=== PATIENT | male | born 1950 | race American Indian/Alaskan Native ===

== ENCOUNTER 2016-10-02 19:30 | Emergency (ER) | payer MEDICARE ==
[2016-10-02 19:30] VITALS: BMI 24.1
[2016-10-02 19:39] VITALS: BP 143/82; PULSE 76; RESP 20; TEMP 98.2; O2SAT 99
--- NOTE | 2016-10-02 19:50 | C.PDOC ---
History Of Present Illness 65-year-old male, with history of diabetes on insulin, hypertension, hyperlipidemia, PAD bilateral LE amputation , mild chronic kidney disease presents to the emergency department for with complains of chronic B/L legs pain x4 days (front right thigh radiating to right hip). 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 PT currently not on chronic pain medication or anticoagulants. Pt denies injury. Pt not associated with movement, no swelling. Pt admits, similar pain in past, denies any new changes to pain quality or location. Pt denies fever, chills, cough, SOB, dyspnea, palpitation, denies swelling, skin changes to B/L LEs. AT present time, appears comfortable, not in any apparent distress. Time Seen by Provider: 10/02/16 19:48 Chief Complaint (Nursing): Pain, Chronic History Per: Patient History/Exam Limitations: no limitations Onset/Duration Of Symptoms: Days (4) Current Symptoms Are (Timing): Still Present Past Medical History Reviewed: Historical Data, Nursing Documentation, Vital Signs Vital Signs: Last Vital Signs Temp 98.2 F 10/02/16 19:37 Pulse 76 10/02/16 19:37 Resp 20 10/02/16 20:54 BP 143/82 10/02/16 19:37 Pulse Ox 99 10/02/16 20:41 - Medical History PMH: CHF, Diabetes, HTN, Hypercholesterolemia, Peripheral Edema (left ankle) - [facility] Procedures AMPUTAT THROUGH MALLEOLI (11/23/14) ANGIOPLASTY OF OTHER NON-CORONARY VESSEL(S) (02/15/14) BELOW KNEE AMPUTAT NEC (11/23/14) CONTINUOUS INVASIVE MECHANICAL VENTILATION <96 CONSEC HRS (10/30/13) CONTRAST ARTERIOGRAM-LEG (02/15/14) INSEJ [id number] PERIPHERAL NON-CORONARY VES STENT(S) (10/30/13) INSERTION OF TWO VASCULAR STENTS (10/30/13) PACKED CELL TRANSFUSION (11/23/14) PROCEDURE ON SINGLE VESSEL (02/15/14) PROCEDURE ON TWO VESSELS (10/30/13) VASC SHUNT & BYPASS NEC (10/30/13) VENOUS CATHETERIZATION NEC (10/30/13) Family History: States: No Known Family Hx - Social History Hx Tobacco Use: Yes Hx Alcohol Use: Yes Hx Substance Use: No - Immunization History Hx Tetanus Toxoid Vaccination: No Hx Influenza Vaccination: No Hx Pneumococcal Vaccination: No Review Of Systems Except As Marked, All Systems Reviewed And Found Negative. Constitutional: Negative for: Fever, Chills Cardiovascular: Negative for: Palpitations Respiratory: Negative for: Cough, Shortness of Breath Musculoskeletal: Positive for: Leg Pain (Bilateral leg pain ) Physical Exam - Physical Exam Appears: Well, Non-toxic, No Acute Distress Skin: Normal Color, Warm, No Rash, No Ecchymosis Eye(s): bilateral: Normal Inspection Nose: Normal, No Discharge Oral Mucosa: Moist Throat: Normal Neck: Normal, Normal ROM, Supple Cardiovascular: Rhythm Regular Respiratory: Normal Breath Sounds, No Stridor, No Wheezing Gastrointestinal/Abdominal: Normal Exam, Soft, No Tenderness Back: Normal Inspection, No CVA Tenderness Extremity: Other (B/L BKA. Appears well healed, no cellulitis, no ecchymoses. Exam of proximal leg- normal exam.) Neurological/Psych: Oriented x3, Normal Speech ED Course And Treatment O2 Sat by Pulse Oximetry: 99 Pulse Ox Interpretation: Normal Progress Note: Records from previous visit to ED review, pt was seen here in ED due to chronic B/L legs pain multiple times and received Rx: Percocet. On re- eavluation, pt is afebrile, hemodynamicaly stable. Non-toxic. Lungs: CTA B/L, BS equal B/L. CVS: (+)S1S2, reg. B/L LEs: no evidence of cellulitis or any other acute findings. Pt admits, pain is chronic, denies any new changes in pain, not in location or quality. Pt was given analgesics in ED and ref. to F/ u with PMD and PM in 1-2 dyas for re-eval and further pain control. Return to ED if any worsening or new changes. 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 Medical Decision Making Medical Decision Making: PLAN: * Morphine IM Disposition Counseled Patient/Family Regarding: Diagnosis, Need For Followup - Disposition Referrals: Tahir Carl MD [Staff Provider] - [facility] [Provider Group] [facility] [Provider Group] Disposition: HOME/ ROUTINE Disposition Time: 20:30 Condition: STABLE Additional Instructions: Follow up with PMD and PM in 1-2 days for re-evaluation and further pain control. return to ED if any new changes. Instructions: Chronic Pain (ED), Above the Knee Amputation (DC) - Clinical Impression Clinical Impression: Chronic pain of lower extremity, Hx of BKA - PA / DESIGN ARCHITECT / Resident Statement MD/DO has reviewed & agrees with the documentation as recorded. - Scribe Statement The provider has reviewed the documentation as recorded by the Scribe Alejandra Tadeo All medical record entries made by the Scribe were at my direction and personally dictated by me. I have reviewed the chart and agree that the record accurately reflects my personal performance of the history, physical exam, medical decision making, and the department course for this patient. I have also personally directed, reviewed, and agree with the discharge instructions and disposition.
[2016-10-02] MEDS ORDERED: Morphine 4 MG/ML VIAL ONE (20:01)
== END 2016-10-02 20:54 | disposition home or self-care (01) ==
LOC: C.ER 19:30
DX: M79.605 Pain in left leg (principal); M79.604 Pain in right leg; G89.29 Other chronic pain; Z89.512 Acquired absence of left leg below knee; Z89.511 Acquired absence of right leg below knee
CPT/HCPCS: 82948; 96372; 99284; J2270

== ENCOUNTER 2016-10-03 21:12 | Emergency (ER) | payer MEDICARE ==
[2016-10-03 21:12] VITALS: BMI 24.1
[2016-10-03 21:25] VITALS: BP 153/71; PULSE 73
--- NOTE | 2016-10-03 21:43 | C.PDOC ---
History Of Present Illness Patient presents to the ED seeking refill of narcotics for chronic right leg pain. Patient has history of right AKA and left BKA. Patient denies fever, nausea, vomiting. Time Seen by Provider: 10/03/16 21:29 Chief Complaint (Nursing): Lower Extremity Problem/Injury History Per: Patient History/Exam Limitations: no limitations Onset/Duration Of Symptoms: Unknown Past Medical History Reviewed: Historical Data, Nursing Documentation, Vital Signs Vital Signs: Last Vital Signs Temp Pulse 73 10/03/16 21:17 Resp 15 10/03/16 22:31 BP 153/71 H 10/03/16 21:17 Pulse Ox 99 10/04/16 00:22 - Medical History PMH: CHF, Diabetes, HTN, Hypercholesterolemia, Peripheral Edema (left ankle), Chronic Kidney Disease - [facility] Procedures AMPUTAT THROUGH MALLEOLI (11/23/14) ANGIOPLASTY OF OTHER NON-CORONARY VESSEL(S) (02/15/14) BELOW KNEE AMPUTAT NEC (11/23/14) CONTINUOUS INVASIVE MECHANICAL VENTILATION <96 CONSEC HRS (10/30/13) CONTRAST ARTERIOGRAM-LEG (02/15/14) INSEJ [id number] PERIPHERAL NON-CORONARY VES STENT(S) (10/30/13) INSERTION OF TWO VASCULAR STENTS (10/30/13) PACKED CELL TRANSFUSION (11/23/14) PROCEDURE ON SINGLE VESSEL (02/15/14) PROCEDURE ON TWO VESSELS (10/30/13) VASC SHUNT & BYPASS NEC (10/30/13) VENOUS CATHETERIZATION NEC (10/30/13) Family History: States: Unknown Family Hx - Social History Hx Tobacco Use: Yes Hx Alcohol Use: Yes Hx Substance Use: No - Immunization History Hx Tetanus Toxoid Vaccination: No Hx Influenza Vaccination: No Hx Pneumococcal Vaccination: No Review Of Systems Constitutional: Negative for: Fever, Chills Gastrointestinal: Negative for: Nausea, Vomiting Musculoskeletal: Positive for: Leg Pain (right) Physical Exam - Physical Exam Appears: No Acute Distress, Combative (confrontational and argumentative ), Agitated Skin: Warm, Dry Eye(s): bilateral: Abnormal Pupil (pinpoint pupils) Extremity: Normal ROM, No Tenderness Neurological/Psych: Oriented x3 ED Course And Treatment O2 Sat by Pulse Oximetry: 99 Medical Decision Making Medical Decision Making: chronic R leg pain, ran out of Tramadol- Dr. Carl called in a new Rx but pt did not belt picker @ pharmacy today. Will belt picker tomorrow One dose of Tramadol tonight should get pt through to tomorrow. Extensive narcotics regimen on [place] [employer] Disposition Doctor Will See Patient In The: Office Counseled Patient/Family Regarding: Studies Performed, Diagnosis - Disposition Referrals: Tahir Carl MD [Staff Provider] - Disposition: HOME/ ROUTINE Disposition Time: 21:42 Condition: GOOD Additional Instructions: At your earliest convenience please belt picker the narcotic pain relievers as prescribed by Dr. Carl today- The ED may NOT be used for renewing chronic narcotic pain relievers. Instructions: Chronic Pain (ED) - Clinical Impression Clinical Impression: Chronic pain of lower extremity - Scribe Statement The provider has reviewed the documentation as recorded by the Scribe Janis Madison All medical record entries made by the Scribe were at my direction and personally dictated by me. I have reviewed the chart and agree that the record accurately reflects my personal performance of the history, physical exam, medical decision making, and the department course for this patient. I have also personally directed, reviewed, and agree with the discharge instructions and disposition.
[2016-10-03 22:34] VITALS: RESP 15
[2016-10-04 00:17] VITALS: O2SAT 99
== END 2016-10-03 22:31 | disposition home or self-care (01) ==
LOC: C.ER 21:12
DX: G89.29 Other chronic pain (principal); M79.661 Pain in right lower leg

== ENCOUNTER 2017-04-14 16:20 | Emergency (ER) | payer MEDICARE ==
[2017-04-14 16:20] VITALS: BMI 24.1
--- NOTE | 2017-04-14 16:44 | C.PDOC ---
History Of Present Illness 66 year old male, with history of DM, left BKA, right AKA, presents to the ED via ambulance for evaluation of right leg pain and lower back which began after he fell out of his wheelchair a couple days ago. Patient states he has been taking Tramadol at home without significant relief. Patient denies head injury/ LOC, nausea, vomiting, urinary/bowel incontinence, extremity numbness/weakness. Chief Complaint (Nursing): Lower Extremity Problem/Injury History Per: Patient, EMS History/Exam Limitations: no limitations Onset/Duration Of Symptoms: Hrs Current Symptoms Are (Timing): Still Present Additional History Per: Patient Past Medical History Reviewed: Historical Data, Nursing Documentation, Vital Signs Vital Signs: Last Vital Signs Temp 97.9 F 04/14/17 19:15 Pulse 86 04/14/17 19:15 Resp 18 04/14/17 19:15 BP 150/72 04/14/17 19:15 Pulse Ox 98 04/14/17 19:46 - Medical History PMH: CHF, Diabetes, HTN, Hypercholesterolemia, Peripheral Edema (left ankle), Chronic Kidney Disease Surgical History: No Surg Hx Denies: Pacemaker - [facility] Procedures AMPUTAT THROUGH MALLEOLI (11/23/14) ANGIOPLASTY OF OTHER NON-CORONARY VESSEL(S) (02/15/14) BELOW KNEE AMPUTAT NEC (11/23/14) CONTINUOUS INVASIVE MECHANICAL VENTILATION <96 CONSEC HRS (10/30/13) CONTRAST ARTERIOGRAM-LEG (02/15/14) INSEJ [id number] PERIPHERAL NON-CORONARY VES STENT(S) (10/30/13) INSERTION OF TWO VASCULAR STENTS (10/30/13) PACKED CELL TRANSFUSION (11/23/14) PROCEDURE ON SINGLE VESSEL (02/15/14) PROCEDURE ON TWO VESSELS (10/30/13) VASC SHUNT & BYPASS NEC (10/30/13) VENOUS CATHETERIZATION NEC (10/30/13) Family History: States: Unknown Family Hx - Social History Hx Tobacco Use: Yes Hx Alcohol Use: No Hx Substance Use: No - Immunization History Hx Tetanus Toxoid Vaccination: Yes Hx Influenza Vaccination: Yes Hx Pneumococcal Vaccination: Yes Review Of Systems Gastrointestinal: Negative for: Nausea, Vomiting Genitourinary: Negative for: Incontinence Musculoskeletal: Positive for: Back Pain (right, lower ), Leg Pain (right) Neurological: Negative for: Weakness, Numbness, Other (head injury/LOC ) Physical Exam - Physical Exam Appears: Non-toxic, No Acute Distress Skin: Normal Color, Warm, Dry, No Other (erythema ) Head: Atraumatic, Normacephalic Eye(s): bilateral: Normal Inspection Oral Mucosa: Moist Neck: Supple Chest: Symmetrical, No Deformity Cardiovascular: Rhythm Regular, No Murmur Respiratory: Normal Breath Sounds Back: Normal Inspection, No Vertebral Tenderness, No Paraspinal Tenderness Extremity: Normal ROM (as per baseline status ), No Tenderness, Capillary Refill (less than 2 seconds ), No Deformity, No Swelling, Other (left lower extremity: [id number]; right lower extremity: [id number]) Neurological/Psych: Normal Speech, Normal Cognition Gait: Unable To Assess ED Course And Treatment O2 Sat by Pulse Oximetry: 98 (on RA) Pulse Ox Interpretation: Normal - Other Rad Right femur X-Ray: Interpreted by Me, Viewed By Me, Read By Radiologist Interpretation: PROCEDURE: Right femur. HISTORY: fall. COMPARISON: None. TECHNIQUE: FINDINGS: Status post AKA. No acute findings with respect to remaining right femur. Embolization coils identified in the right SFA. Degenerative changes noted right hip. IMPRESSION: No acute findings related to /accounting for the clinical presentation. lumbar spine XR X-Ray: Interpreted by Me, Viewed By Me, Read By Radiologist Interpretation: PROCEDURE: Radiographs of the Lumbar Spine. HISTORY: fall. COMPARISON: No prior. FINDINGS: BONES: No fracture identified on this single AP view. DISC SPACES: Unremarkable. OTHER FINDINGS: None. IMPRESSION : No acute findings or significant abnormalities identified. Limitations of the current examination: Study confined to an AP view only. If clinical circumstances warrant follow-up may be beneficial including CT of the lumbar spine. Progress Note: LS Spine AP/LAT, Left femur XR ordered and reviewed. Patient received Percocet PO. Patient notes he is unable to find relief and received Morphine IM. Patient did not tolerate XR Lumbar Spine. CT Lumbar spine ordered, as per recommedation by radiologist. Disposition - Disposition Disposition Time: 19:47 Condition: STABLE Forms: [facility] ([place]) - Clinical Impression Clinical Impression: Fall, Back pain, Leg pain - PA / PRECONSTRUCTION MANAGER / Resident Statement MD/DO has reviewed & agrees with the documentation as recorded. - Scribe Statement The provider has reviewed the documentation as recorded by the Scribe (Nika Storm) All medical record entries made by the Jarocho were at my direction and personally dictated by me. I have reviewed the chart and agree that the record accurately reflects my personal performance of the history, physical exam, medical decision making, and the department course for this patient. I have also personally directed, reviewed, and agree with the discharge instructions and disposition. Physician Patient Turnover Patient Signed Over To: Stefani Morrow Handoff Comments: CT LS spine pending
[2017-04-14] MEDS ORDERED: Oxycodone/Acetaminophen 5/325 mg Tab PO STA (16:45)
[2017-04-14] MEDS ORDERED: Oxycodone/Acetaminophen 5/325 mg Tab ONE ×2 (17:02→22:49)
--- NOTE | 2017-04-14 17:40 | RAD ---
PROCEDURE: Right femur HISTORY: fall COMPARISON: None. TECHNIQUE: FINDINGS: Status post AKA. No acute findings with respect to remaining right femur. Embolization coils identified in the right SFA. Degenerative changes noted right hip. IMPRESSION: No acute findings related to/accounting for the clinical presentation.
--- NOTE | 2017-04-14 18:15 | RAD ---
PROCEDURE: Radiographs of the Lumbar Spine. HISTORY: fall COMPARISON: No prior. FINDINGS: BONES: No fracture identified on this single AP view. DISC SPACES: Unremarkable. OTHER FINDINGS: None. IMPRESSION: No acute findings or significant abnormalities identified. Limitations of the current examination: Study confined to an AP view only. If clinical circumstances warrant follow-up may be beneficial including CT of the lumbar spine.
[2017-04-14 19:07] VITALS: RESP 18
[2017-04-14 19:16] VITALS: O2SAT 98
--- NOTE | 2017-04-14 20:50 | CT ---
EXAM: CT Lumbar Spine Without Intravenous Contrast EXAM DATE/TIME: Exam ordered 04/14/2017 6:07 PM CLINICAL HISTORY: 66 years old, male; Pain; Low back pain; Additional info: Fall TECHNIQUE: Axial computed tomography images of the lumbar spine without intravenous contrast. All CT scans at this facility use one or more dose reduction techniques, viz.: automated exposure control; ma/kV adjustment per patient size (including targeted exams where dose is matched to indication; i.e. head); or iterative reconstruction technique. Coronal and sagittal reformatted images were created and reviewed. COMPARISON: No relevant prior studies available. FINDINGS: Vertebrae: Unremarkable. No acute fracture. Discs/spinal canal/neural foramina: L1-2: Unremarkable L2-3: Small marginal osteophytes. No herniation or stenosis. L3-4: There are small anterior marginal osteophytes. There is mild circumferential annulus bulge. No stenosis. L4-5: Circumferential annulus bulge. There is mild narrowing the lateral recesses bilaterally. Minimal degenerative changes are seen in the facet joints. L5-S1: Unremarkable. Soft tissues: A 2.5 cm low density lesion is seen in the upper pole of right kidney with a density measurement of 5H. Nonobstructing Calcification is noted in the left renal hilum which appears to be vascular in nature. There is a 1.4 cm low-density lesion in lower pole left kidney with a density measurement of 4H.. There is a 1.6 cm left adrenal mass with a density measurement of minus 1H. IMPRESSION: 1. Degenerative changes noted. Mild narrowing of the lateral recesses bilaterally at L4-5. No central stenosis. 2. Left renal lesions. These are likely cysts. This impression could be confirmed with ultrasound. 3. Low density left adrenal mass. No follow-up is necessary.
[2017-04-14 21:42] VITALS: BP 165/81; PULSE 80; TEMP 97.8
== END 2017-04-14 22:50 | disposition home or self-care (01) ==
LOC: C.ER 16:20
DX: M79.604 Pain in right leg (principal); M54.5 Low back pain; W05.0XXA Fall from non-moving wheelchair, initial encounter
CPT/HCPCS: 72100; 72131; 73552; 82948; 96372; 99285; J2270